=== PATIENT | female | born 2000 | race Hispanic/Latino ===

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

== ENCOUNTER 2018-03-12 02:40 | Emergency (ER) | payer MEDICAID | END 2018-03-12 03:54 | disposition home or self-care (01) | LOC: EDH 02:40 | DX: J06.9 Acute upper respiratory infection, unspecified (principal) | CPT/HCPCS: 87804 ==

== ENCOUNTER 2018-03-27 18:19 | Emergency (ER) | payer MEDICAID | END 2018-03-27 19:16 | disposition home or self-care (01) | LOC: EDH 18:19 | DX: N64.4 Mastodynia (principal); M41.9 Scoliosis, unspecified | CPT/HCPCS: 99281 ==

== ENCOUNTER 2018-06-28 09:37 | Emergency (ER) | payer MEDICAID | END 2018-06-28 11:44 | disposition home or self-care (01) | LOC: EDH 09:37 | DX: S93.501A Unspecified sprain of right great toe, initial encounter (principal); X58.XXXA Exposure to other specified factors, initial encounter; Y93.89 Activity, other specified; Y92.89 Other specified places as the place of occurrence of the external cause; Y99.8 Other external cause status | CPT/HCPCS: 73660; 81025 ==

== ENCOUNTER 2018-07-05 11:23 | Emergency (ER) | payer MEDICAID ==
[2018-07-05] MEDS ORDERED: ONDANSETRON ODT 4 MG TAB ONE (11:49)
[2018-07-05 11:59] LABS: APPEARANCE,URINE Clear (CLEAR); BILIRUBIN,URINE Negative (NEGATIVE); COLOR,URINE Yellow (YELLOW); GLUCOSE, URINE (UA) Negative (NEGATIVE); KETONES,URINE Negative (NEGATIVE); LEUKOCYTE ESTERASE ,URINE Negative (NEGATIVE); NITRATE,URINE Negative (NEGATIVE); OCCULT BLOOD,URINE Negative (NEGATIVE); PH,URINE >=9.0 (5.0-8.0); PROTEIN,URINE Negative (NEGATIVE)
[2018-07-05 12:12] LABS: HCG,QUAL RESULT NEGATIVE (NEGATIVE)
== END 2018-07-05 12:53 | disposition home or self-care (01) ==
LOC: EDH 11:23
DX: R11.2 Nausea with vomiting, unspecified (principal)
CPT/HCPCS: 81003; 81025; 87804

== ENCOUNTER 2018-08-20 12:20 | Emergency (ER) | payer MEDICAID | END 2018-08-20 13:52 | disposition home or self-care (01) | LOC: EDH 12:20 | DX: J03.90 Acute tonsillitis, unspecified (principal); F41.1 Generalized anxiety disorder | CPT/HCPCS: 81025 ==

== ENCOUNTER 2022-08-12 17:56 | Emergency (ER) | payer MEDICAID ==
[~2022-08-12] VITALS: Ht 165.1 cm; Wt 68.0 kg
[2022-08-12 20:05] LABS: APPEARANCE,URINE CLEAR (CLEAR); BILIRUBIN,URINE NEGATIVE (NEGATIVE); COLOR,URINE COLORLESS (YELLOW); GLUCOSE, URINE (UA) NEGATIVE (NEGATIVE); KETONES,URINE NEGATIVE (NEGATIVE); LEUKOCYTE ESTERASE ,URINE NEGATIVE Leu/uL (NEGATIVE); NITRATE,URINE NEGATIVE (NEGATIVE); OCCULT BLOOD,URINE NEGATIVE (NEGATIVE); PROTEIN,URINE NEGATIVE (NEGATIVE); UROBILINOGEN,URINE 0.2 mg/dL (0.2-1.0)
[2022-08-12 20:10] LABS: BACTERIA,URINE RARE /HPF (None Seen); MUCUS,URINE RARE LPF (None Seen); SQUAMOUS EPITHELIAL CELL,UR RARE /HPF (0-2)
[2022-08-12 20:11] LABS: HCG,QUALITATIVE URINE NEGATIVE (NEGATIVE)
[2022-08-12 20:56] LABS: BASOPHILS % (AUTO) 0.6 % (0.0-5.0); EOSINOPHILS % (AUTO) 2.1 % (0.0-8.0); HEMATOCRIT 28.6 % (36-48); MEAN CORPUSCULAR HEMOGLOBIN 17.4 pg (27.0-33.0); MEAN CORPUSCULAR HGB CONC 27.3 g/dL (32.0-36.0); MEAN CORPUSCULAR VOLUME 63.8 fL (79-99); MONOCYTES % (AUTO) 6.3 % (3.0-13.0); NEUTROPHILS % (AUTO) 63.9 % (40.0-77.0); PLATELET COUNT (AUTO) 310 K/uL (130-400); RED BLOOD CELL COUNT(AUTO) 4.48 MIL/uL (4.00-5.50); RED CELL DISTRIBUTION WIDTH 18.8 % (11.0-15.5); WHITE BLOOD COUNT (AUTO) 7.1 K/uL (4.8-10.8)
[2022-08-12] MEDS ORDERED: KETOROLAC 60 MG VIAL (30MG/ML) IM ONE (21:00)
[2022-08-12 21:05] LABS: CREATININE 0.7 mg/dL (0.5-1.5); POTASSIUM 3.7 mmol/L (3.5-5.1)
[2022-08-12 21:09] LABS: ALBUMIN 3.9 g/dL (3.5-5.0); TOTAL PROTEIN, SERUM 7.5 g/dL (6.0-8.3)
[2022-08-12] MEDS ORDERED: MEDR10TA PO (22:12)
[2022-08-12] MEDS ORDERED: ONDA-104 PO (22:12)
[2022-08-12] MEDS ORDERED: NAPR-1023 PO (22:12)
[2022-08-12 22:29] VITALS: BP 115/76
== END 2022-08-12 22:38 | disposition home or self-care (01) ==
LOC: EDH 17:56
DX: N94.6 Dysmenorrhea, unspecified (principal); D25.9 Leiomyoma of uterus, unspecified; D64.9 Anemia, unspecified; Z79.1 Long term (current) use of non-steroidal anti-inflammatories (NSAID)
CPT/HCPCS: 99285; 76856; 80053; 83690; 85025; 81001; 81025; 36415; 96372; J1885